=== PATIENT | female | born 1975 | race Caucasian/White ===

== ENCOUNTER 2017-06-21 22:03 | Inpatient (IN) | payer MEDICAID ==
[2017-06-21 22:54] LABS: RUPTURE FETAL MEMBRANES POSITIVE (NEGATIVE)
[2017-06-22] MEDS ORDERED: LIDOCAINE 1% (MPF) 30 ML INJ INJ
[2017-06-22] MEDS: LACTATED RINGER'S 1,000 ML IV ×4 (01:06→21:24)
[2017-06-22 01:25] LABS: ADD MAN DIFF? NO
[2017-06-22 01:27] LABS: BASOPHILS % 0.2 % (0.0-2.0); EOSINOPHILS # 0.1 10^3/ul (0.0-0.5); EOSINOPHILS % 0.7 % (0.0-7.0); HEMATOCRIT 33.8 % (37.0-47.0); HEMOGLOBIN 11.5 g/dl (12.0-16.0); LYMPHOCYTES % 20.3 % (15.0-51.0); MEAN CORPUSCULAR HEMOGLOBIN 30.1 pg (29.0-33.0); MEAN CORPUSCULAR VOLUME 88.5 fl (82.0-101.0); MONOCYTE # 0.6 10^3/ul (0.3-0.9); MONOCYTES % 5.7 % (0.0-11.0); NEUTROPHIL # 7.1 10^3/ul (1.6-7.5); PLATELET COUNT 200 10^3/UL (140-415); RED BLOOD COUNT 3.82 10^6/ul (4.20-5.40); RED CELL DISTRIBUTION WIDTH 15.2 % (11.5-14.5)
[2017-06-22 01:27] LABS: WHITE BLOOD COUNT 9.8 10^3/ul (4.8-10.8)
[2017-06-22 01:34] LABS: ADD UMIC NO; UR ASCORBIC ACID NEGATIVE (NEGATIVE); UR BILIRUBIN (Dip) NEGATIVE (NEGATIVE); UR BLOOD (Dip) NEGATIVE (NEGATIVE); UR CLARITY CLEAR (CLEAR); UR COLOR YELLOW (YELLOW); UR GLUCOSE (Dip) NEGATIVE (NEGATIVE); UR KETONES (Dip) NEGATIVE (NEGATIVE); UR LEUKOCYTE ESTERASE (Dip) NEGATIVE Leu/ul (NEGATIVE); UR NITRITE (Dip) NEGATIVE (NEGATIVE); UR SPECIFIC GRAVITY (Dip) 1.013 (1.003-1.030); UR TOTAL PROTEIN (Dip) NEGATIVE (NEGATIVE); UR UROBILINOGEN (Dip) NEGATIVE (NEGATIVE)
[2017-06-22 01:51] LABS: INR 0.96; PROTIME 12.9 Sec (11.9-14.9)
[2017-06-22 01:52] LABS: PARTIAL THROMBOPLASTIN TIME 25.9 Sec (25.0-35.0)
[2017-06-22 01:59] LABS: ALANINE AMINOTRANSFERASE 23 IU/L (13-69); ALBUMIN 3.8 g/dl (3.3-4.9); ALBUMIN/GLOBULIN RATIO 1.11; ALKALINE PHOSPHATASE 163 IU/L (42-121); ANION GAP 17 (8-16); ASPARTATE AMINO TRANSFERASE 20 IU/L (15-46); BILIRUBIN,INDIRECT 0.1 mg/dl (0-1.1); BILIRUBIN,TOTAL 0.1 mg/dl (0.2-1.3); BLOOD UREA NITROGEN 10 mg/dl (7-20); CALCIUM 10.7 mg/dl (8.4-10.2); CARBON DIOXIDE 22 mmol/L (21-31); CHLORIDE 108 mmol/L (97-110); CREATININE 0.64 mg/dl (0.44-1.00); GLUCOSE 97 mg/dl (70-220); POTASSIUM 3.9 mmol/L (3.5-5.1); SODIUM 143 mmol/L (135-144); TOTAL PROTEIN 7.2 g/dl (6.1-8.1)
[2017-06-22 02:01] LABS: URIC ACID 5.2 mg/dl (3.1-7.9)
[2017-06-22 03:14] LABS: HEPATITIS B SURFACE ANTIGEN NEGATIVE (NEGATIVE)
[2017-06-22 03:25] LABS: HIV 1&2 ANTIBODY NEGATIVE (NEGATIVE)
[2017-06-22] MEDS ORDERED: FAMOTIDINE 20 MG INJ (14:17)
[2017-06-22] MEDS: CITRIC ACID/SODIUM CITRATE 15 ML CUP PO (14:18)
[2017-06-22] MEDS: FAMOTIDINE 20 MG INJ IV (14:21)
[2017-06-22] MEDS: ONDANSETRON 4 MG INJ IV (14:23)
[2017-06-22] MEDS ORDERED: FENTAnyl 50 MCG/ML VIAL (14:35)
[2017-06-22] MEDS ORDERED: OXYTOCIN 10 UNIT INJ (14:36)
[2017-06-22] MEDS ORDERED: PHENYLephrine (100 MCG/ML) 5ML SYG (14:36)
[2017-06-22] MEDS ORDERED: morphine SULFATE/PF (10 MG/10 ML) INJ (14:36)
[2017-06-22] MEDS ORDERED: METOCLOPRAMIDE 10 MG INJ (14:36)
[2017-06-22] MEDS: CEFAZOLIN 2 GM/50 ML (PMX) 50 ML IV ×2 (14:40→16:06)
[2017-06-22] MEDS ORDERED: NALBUPHINE HCL (10 MG/1 ML) INJ IV (15:30)
[2017-06-22] MEDS ORDERED: TRIMETHOBENZAMIDE 100 MG/ML VIAL IM ×2 (15:30)
[2017-06-22] MEDS ORDERED: ONDANSETRON 4 MG INJ IV ×2 (15:30)
[2017-06-22] MEDS ORDERED: MIDAZOLAM 1 MG/ML 2 ML INJ IV (15:30)
[2017-06-22] MEDS ORDERED: HYDROmorphONE (0.2 MG/ML) 10ML SYG IV ×3 (15:30)
[2017-06-22] MEDS ORDERED: NALOXONE (0.4 MG/ML) INJ IV (15:30)
[2017-06-22] MEDS ORDERED: OXYCODONE/ACETAMINOPHEN (5/325) TAB PO ×2 (15:30)
[2017-06-22] MEDS ORDERED: DIPHENHYDRAMINE 50 MG INJ IV ×2 (15:30)
[2017-06-22] MEDS ORDERED: MEPERIDINE 25 MG INJ IV (15:30)
[2017-06-22] MEDS ORDERED: ALBUTEROL 0.083% (NEB) 2.5 MG/3 ML AMP HHN (15:30)
[2017-06-22] MEDS ORDERED: IPRATROPIUM (NEB) 0.5 MG/2.5 ML AMP HHN (15:30)
[2017-06-22] MEDS ORDERED: FENTAnyl 50 MCG/ML VIAL IV ×3 (15:30)
[2017-06-22] MEDS ORDERED: EPHEDrine SULFATE 50 MG/5 ML SYG IV (15:30)
[2017-06-22] MEDS ORDERED: morphine 2 MG INJ IV ×2 (15:30)
[2017-06-22] MEDS ORDERED: LABETALOL HCL 20MG INJ IV (15:30)
[2017-06-22] MEDS ORDERED: hydrALAzine 20 MG INJ IV (15:30)
[2017-06-22] MEDS: OXYTOCIN 30 UNITS/LR 500 ML IV (16:52)
[2017-06-22 18:58] LABS: RAPID PLASMA REAGIN NONREACTIVE (NR)
[2017-06-22] MEDS ORDERED: CARBOPROST 250 MCG INJ IM ×2 (19:00)
[2017-06-22] MEDS ORDERED: HYDROCODONE/APAP (5/325) TAB PO (19:00)
[2017-06-22] MEDS ORDERED: METHYLERGONOVINE 0.2 MG INJ IM ×2 (19:00)
[2017-06-22] MEDS ORDERED: MISOPROSTOL 200 MCG TAB PR ×2 (19:00)
[2017-06-22] MEDS ORDERED: OXYTOCIN 30 UNITS/LR 500 ML IV ×2 (19:00)
[2017-06-22] MEDS ORDERED: CEFAZOLIN 2 GM/50 ML (PMX) 50 ML IVPB (19:00)
[2017-06-22] MEDS: SENNA/DOCUSATE NA (8.6MG/50MG) TAB PO (21:00)
[2017-06-22] MEDS: CEFAZOLIN 2 GM/50 ML (PMX) 50 ML IVPB (21:37)
[2017-06-23] MEDS: KETOROLAC 30 MG INJ IV ×3 (01:22→15:14)
[2017-06-23] MEDS: BISACODYL 10 MG SUPP PR (03:48)
[2017-06-23] MEDS: CLINDAMYCIN 300 MG CAP PO ×5 (05:11→23:52)
[2017-06-23] MEDS: CEFAZOLIN 2 GM/50 ML (PMX) 50 ML IVPB ×2 (05:12→14:29)
[2017-06-23] MEDS: LACTATED RINGER'S 1,000 ML IV (06:05)
[2017-06-23 08:34] LABS: ADD MAN DIFF? NO
[2017-06-23 08:44] LABS: WHITE BLOOD COUNT 10.4 10^3/ul (4.8-10.8)
[2017-06-23 08:44] LABS: BASOPHILS % 0.3 % (0.0-2.0); EOSINOPHILS % 0.2 % (0.0-7.0); HEMATOCRIT 31.4 % (37.0-47.0); HEMOGLOBIN 10.7 g/dl (12.0-16.0); LYMPHOCYTES # 1.2 10^3/ul (0.8-2.9); LYMPHOCYTES % 11.5 % (15.0-51.0); MEAN CORPUSCULAR HEMOGLOBIN 30.3 pg (29.0-33.0); MEAN CORPUSCULAR HGB CONC 34.1 g/dl (32.0-37.0); MEAN PLATELET VOLUME 11.2 fl (7.4-10.4); MONOCYTE # 0.7 10^3/ul (0.3-0.9); MONOCYTES % 6.3 % (0.0-11.0); NEUTROPHIL # 8.4 10^3/ul (1.6-7.5); NEUTROPHILS % 81.1 % (39.0-77.0); PLATELET COUNT 167 10^3/UL (140-415); RED BLOOD COUNT 3.53 10^6/ul (4.20-5.40); RED CELL DISTRIBUTION WIDTH 14.8 % (11.5-14.5)
[2017-06-23] MEDS: SENNA/DOCUSATE NA (8.6MG/50MG) TAB PO ×2 (09:06→21:21)
[2017-06-23] MEDS: IBUPROFEN 800 MG TAB PO ×2 (14:00→18:00)
[2017-06-23] MEDS: OXYCODONE/ACETAMINOPHEN (5/325) TAB PO (19:42)
[2017-06-24] MEDS: BISACODYL 10 MG SUPP PR (03:48)
[2017-06-24] MEDS: OXYCODONE/ACETAMINOPHEN (5/325) TAB PO ×2 (04:58→18:54)
[2017-06-24] MEDS: IBUPROFEN 800 MG TAB PO ×3 (06:02→22:03)
[2017-06-24] MEDS: CLINDAMYCIN 300 MG CAP PO ×3 (06:03→17:51)
[2017-06-24] MEDS: NA PHOSPHATE/BIPHOS 133 ML ENEMA PR (10:51)
[2017-06-24] MEDS: SENNA/DOCUSATE NA (8.6MG/50MG) TAB PO ×2 (10:51→20:28)
[2017-06-24] MEDS: LANOLIN 7 GM TUBE TOP (20:28)
[2017-06-25] MEDS: OXYCODONE/ACETAMINOPHEN (5/325) TAB PO ×2 (02:37→11:35)
[2017-06-25] MEDS: IBUPROFEN 800 MG TAB PO ×2 (05:52→14:31)
[2017-06-25] MEDS: CLINDAMYCIN 300 MG CAP PO ×4 (05:52→18:38)
[2017-06-25] MEDS: DIPHTH/TET/ACEL PERTUSS (ADULT) 0.5 ML VIAL IM* (09:00)
[2017-06-25] MEDS: MEASLES,MUMPS,RUBELLA VACCINE INJ SC* (09:00)
[2017-06-25] MEDS: SENNA/DOCUSATE NA (8.6MG/50MG) TAB PO (09:34)
[2017-06-25 12:52] LABS: RUBELLA ANTIBODY - IGG 7.53 index; RUBELLA ANTIBODY - IGM <20.00 AU/mL
== END 2017-06-25 18:40 | disposition home or self-care (01) | DRG 766 ==
LOC: OBT 22:03 → L-D 22:04 → PP1 06-22 18:37
PROC: 10D00Z1 Extraction of Products of Conception, Low, Open Approach (ICD-10-PCS; principal; 2017-06-22 14:15)
PROC: 0UL70ZZ Occlusion of Bilateral Fallopian Tubes, Open Approach (ICD-10-PCS; 2017-06-22 14:15)
DX: O34.211 Maternal care for low transverse scar from previous cesarean delivery (principal); Z30.2 Encounter for sterilization; Z37.0 Single live birth; Z3A.39 39 weeks gestation of pregnancy
CPT/HCPCS: 76815; 80053; 81003; 84112; 84560; 85025; 85610; 85730; 86592; 86703; 86762; 86900; 86901; 87340; 88302; 94760; 99464